=== PATIENT | female | born 1965 | race Caucasian/White ===

== ENCOUNTER 2023-06-16 08:45 | Outpatient (CLI) | payer BC, OTHER ==
--- NOTE | 2023-06-16 10:54 | XRAY Report ---
PROCEDURE: Chest 2V INDICATIONS: COUGH TECHNIQUE: 2 views of the chest were acquired. COMPARISON: None. FINDINGS: Surgical changes and devices: None. Lungs and pleura: No pleural effusions or pneumothorax. Lungs are clear. Mediastinum: Mediastinal contours appear normal. Heart size is normal. Bones and chest wall: No suspicious bony lesions. Overlying soft tissues appear unremarkable. IMPRESSION: No acute cardiopulmonary process. Reviewed by: Kurt Bryant MD on 06/16/2023 10:53 AM PDT Approved by: Kurt Bryant MD on 06/16/2023 10:53 AM PDT Station ID: [id number]
== END 2023-06-16 09:00 | disposition home or self-care (01) ==
LOC: DI.N 08:45
PROVIDERS: ATTEND Family Medicine
DX: R05.9 Cough, unspecified (principal)